=== PATIENT | female | born 2000 | race American Indian/Alaskan Native ===

== ENCOUNTER 2021-04-08 08:23 | Inpatient (IN) | payer MEDICAID ==
[2021-04-08] MEDS ORDERED: LIDOCAINE (2%) 20 MG/1 ML VIAL 20 ML MDV INFILTRATI NR (10:23)
[2021-04-08] MEDS ORDERED: TERBUTALINE 1 MG/1 ML INJ SUB-Q PRN (10:23)
[2021-04-08] MEDS ORDERED: AMPICILLIN/NS 2 GM/100 ML 2 GM/100 ML BAG IV ONE (10:23)
[2021-04-08] MEDS ORDERED: OXYTOCIN DRIP 30 UNITS/500 ML BAG IV SCH ×2 (11:00)
[2021-04-08 11:09] LABS: Hematocrit 29.5 % (30.3-42.9); Hemoglobin 9.3 gm/dl (10.1-14.3); Mean Corpuscular HGB Conc 32 % (30-34); Platelet Count 206 K/mm3 (140-440); Red Blood Count 4.45 M/mm3 (3.65-5.03); Red Cell Distribution Width 19.4 % (13.2-15.2)
[2021-04-08 11:11] LABS: Mean Corpuscular Volume 66 fl (79-97)
[2021-04-08] MEDS ORDERED: ePHEDrine SULFATE 50 MG/1 ML INJ IV PRN ×2 (11:30→21:43)
[2021-04-08] MEDS ORDERED: miSOPROStol 25 MCG TAB VG SCH (11:30)
[2021-04-08] MEDS ORDERED: BUTORPHANOL 2 MG/1 ML INJ IV PRN (11:30)
[2021-04-08] MEDS: LACTATED RINGERS 1,000 ML IV SCH ×3 (13:07→21:27)
[2021-04-08] MEDS: AMPICILLIN/NS 1 GM/50 ML 1 GM/50 ML BAG IV SCH ×2 (17:36→21:18)
[2021-04-08] MEDS: ACETAMINOPHEN 325 MG TAB PO PRN (17:47)
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
[2021-04-08] MEDS ORDERED: fentaNYL-BUPIV 2 MCG/ML-0.125% 200 MCG/100 ML BAG EPIDURAL ONE (21:41)
[2021-04-08] MEDS ORDERED: NALOXONE 2 MG/2 ML INJ IV PRN (21:43)
--- NOTE | 2021-04-08 21:43 | Anesthesia Consultation ---
Anesthesia Consult and Med Hx Date of service: 04/08/21 - Airway Anesthetic Teeth Evaluation: Good ROM Head & Neck: Adequate Mental/Hyoid Distance: Adequate Mallampati Class: Class II Intubation Access Assessment: Probably Good - Pulmonary Exam CTA: Yes - Cardiac Exam Cardiac Exam: RRR - Pre-Operative Health Status ASA Pre-Surgery Classification: ASA2 Proposed Anesthetic Plan: Epidural - Pulmonary Hx Asthma: No - Cardiovascular System Hx Hypertension: No - Central Nervous System Hx Seizures: No Hx Psychiatric Problems: Yes (ANXIETY) - Endocrine Hx Renal Disease: No Hx Hypothyroidism: No Hx Hyperthyroidism: No - Hematic Hx Anemia: No Hx Sickle Cell Disease: No - Other Systems Hx Alcohol Use: No
[2021-04-08] MEDS ORDERED: MINERAL OIL 30 ML ORAL LIQD PO PRN (22:00)
--- NOTE | 2021-04-08 22:03 | Progress Note ---
Labor Epidural - Labor Epidural Start Time: 21:52 Stop Time: 21:58 Performed by:: ESTEFANIA SHEPARD Procedure: Patient is requesting epidural for labor pain. H&P, and labs reviewed. Procedure explained, questions answered, consent obtained. Patient in sitting position with blood pressure cuff and pulse ox on and working. Timeout performed immediately before start of procedure. Sterile chlorahexadine 0.5% prep/drape. 5 mL 1% lidocaine skin wheal at L[3]-L[4]. 18-gauge Tuohy epidural needle advanced to [id number] with saline at [7] cm. Epidural dexmedetomidine [30] mcg administered. Epidural catheter advanced to [12] cm, negative aspiration for blood and csf, negative test dose 3 ml 1.5% lidocaine with epinephrine. Sterile steri-strips and tegaderm applied, followed by tape reinforcement. Patient tolerated procedure well.
[2021-04-08] MEDS: fentaNYL-BUPIV 2 MCG/ML-0.125% 200 MCG/100 ML BAG EPIDURAL SCH (22:16)
[2021-04-09] MEDS: AMPICILLIN/NS 1 GM/50 ML 1 GM/50 ML BAG IV SCH ×2 (01:18→08:05)
[2021-04-09] MEDS: fentaNYL-BUPIV 2 MCG/ML-0.125% 200 MCG/100 ML BAG EPIDURAL SCH (05:55)
[2021-04-09] MEDS: LACTATED RINGERS 1,000 ML IV SCH (09:19)
--- NOTE | 2021-04-09 10:07 | Progress Note ---
Assessment and Plan HD 2 of induction of labor. Continue with current regimen. Had discussion with patient and mother regarding plan of care. Anticipate . Subjective - Subjective Date of service: 04/09/21 Interval history: Patient is 20-year-old 2 para 0 who presents at 38 weeks for induction of labor secondary to IUGR at 7 percentile. Pt had epidural placed last night but with incomplete pain relief. Pitocin was stopped due to late decelerations and discomfort, however, patient is feeling better relief now. Patient reports: new complaints (incomplete pain relief with epidural) Objective - Vital Signs Vital Signs: Vital Signs - 12hr 04/08/21 04/08/21 04/08/21 22:03 22:04 22:05 Temperature Pulse Rate 103 H 74 87 Respiratory Rate Blood Pressure 125/72 O2 Sat by Pulse 91 100 Oximetry 04/08/21 04/08/21 04/08/21 22:07 22:10 22:15 Temperature Pulse Rate 76 81 80 Respiratory Rate Blood Pressure 131/80 122/81 O2 Sat by Pulse 100 100 Oximetry 04/08/21 04/08/21 04/08/21 22:20 22:25 22:26 Temperature Pulse Rate 95 H 82 81 Respiratory Rate Blood Pressure 121/73 O2 Sat by Pulse 100 100 Oximetry 04/08/21 04/08/21 04/08/21 22:30 22:35 22:40 Temperature Pulse Rate 84 78 75 Respiratory Rate Blood Pressure O2 Sat by Pulse 100 100 100 Oximetry 04/08/21 04/08/21 04/08/21 22:41 22:45 22:49 Temperature Pulse Rate 80 82 86 Respiratory Rate Blood Pressure 111/73 O2 Sat by Pulse 100 84 Oximetry 04/08/21 04/08/21 04/08/21 22:52 22:57 23:02 Temperature Pulse Rate 88 82 89 Respiratory Rate Blood Pressure 105/58 O2 Sat by Pulse 96 100 99 Oximetry 04/08/21 04/08/21 04/08/21 23:07 23:12 23:17 Temperature Pulse Rate 90 74 77 Respiratory Rate Blood Pressure 131/60 O2 Sat by Pulse 99 99 98 Oximetry 04/08/21 04/08/21 04/08/21 23:22 23:27 23:32 Temperature Pulse Rate 89 78 74 Respiratory Rate Blood Pressure 118/71 O2 Sat by Pulse 100 98 100 Oximetry 04/08/21 04/08/2104/08/21 23:37 23:42 23:47 Temperature Pulse Rate 78 80 77 Respiratory Rate Blood Pressure O2 Sat by Pulse 99 98 95 Oximetry 04/08/21 04/08/21 04/08/21 23:48 23:52 23:57 Temperature Pulse Rate 89 82 81 Respiratory Rate Blood Pressure O2 Sat by Pulse 94 97 99 Oximetry 04/09/21 04/09/21 04/09/21 00:00 00:02 00:07 Temperature Pulse Rate 83 83 94 H Respiratory Rate Blood Pressure 121/76 O2 Sat by Pulse 98 99 Oximetry 04/09/21 04/09/21 04/09/21 00:12 00:17 00:22 Temperature Pulse Rate 83 73 73 Respiratory Rate Blood Pressure O2 Sat by Pulse 99 99 99 Oximetry 04/09/21 04/09/21 04/09/21 00:27 00:30 00:32 Temperature Pulse Rate 96 H 77 75 Respiratory Rate Blood Pressure 129/81 O2 Sat by Pulse 98 100 Oximetry 04/09/21 04/09/21 04/09/21 00:37 00:42 00:47 Temperature Pulse Rate 70 66 70 Respiratory Rate Blood Pressure O2 Sat by Pulse 97 100 100 Oximetry 04/09/21 04/09/21 04/09/21 00:52 00:57 00:59 Temperature Pulse Rate 71 83 80 Respiratory Rate Blood Pressure 112/70 O2 Sat by Pulse 100 99 Oximetry 04/09/21 04/09/21 04/09/21 01:02 01:07 01:12 Temperature Pulse Rate 68 72 82 Respiratory Rate Blood Pressure O2 Sat by Pulse 100 100 100 Oximetry 04/09/21 04/09/21 04/09/21 01:17 01:22 01:27 Temperature Pulse Rate 84 73 82 Respiratory Rate Blood Pressure O2 Sat by Pulse 100 100 99 Oximetry 04/09/21 04/09/21 04/09/21 01:30 01:32 01:37 Temperature Pulse Rate 73 77 76 Respiratory Rate Blood Pressure 126/88 O2 Sat by Pulse 100 100 Oximetry 04/09/21 04/09/21 04/09/21 01:42 01:47 01:52 Temperature Pulse Rate 75 85 85 Respiratory Rate Blood Pressure O2 Sat by Pulse 100 100 100 Oximetry 04/09/21 04/09/21 04/09/21 01:57 01:59 02:02 Temperature Pulse Rate 77 82 77 Respiratory Rate Blood Pressure 120/72 O2 Sat by Pulse 100 100 Oximetry 04/09/21 04/09/21 04/09/21 02:07 02:12 02:17 Temperature Pulse Rate 82 86 81 Respiratory Rate Blood Pressure O2 Sat by Pulse 100 100 100 Oximetry 04/09/21 04/09/21 04/09/21 02:22 02:27 02:30 Temperature Pulse Rate 86 87 88 Respiratory Rate Blood Pressure 139/91 O2 Sat by Pulse 100 100 Oximetry 04/09/21 04/09/21 04/09/21 02:32 02:37 02:42 Temperature Pulse Rate 87 94 H 102 H Respiratory Rate Blood Pressure O2 Sat by Pulse 100 100 100 Oximetry 04/09/21 04/09/21 04/09/21 02:47 02:52 02:57 Temperature Pulse Rate 91 H 92 H 86 Respiratory Rate Blood Pressure O2 Sat by Pulse 100 100 100 Oximetry 04/09/21 04/09/21 04/09/21 03:01 03:02 03:07 Temperature Pulse Rate 78 79 88 Respiratory Rate Blood Pressure 146/91 O2 Sat by Pulse 100 100 Oximetry 04/09/21 04/09/21 04/09/21 03:12 03:17 03:22 Temperature Pulse Rate 85 82 82 Respiratory Rate Blood Pressure O2 Sat by Pulse 100 100 100 Oximetry 04/09/21 04/09/21 04/09/21 03:27 03:29 03:32 Temperature Pulse Rate 79 83 80 Respiratory Rate Blood Pressure 123/88 O2 Sat by Pulse 100 100 Oximetry 04/09/21 04/09/21 04/09/21 03:37 03:42 03:47 Temperature Pulse Rate 77 78 98 H Respiratory Rate Blood Pressure O2 Sat by Pulse 100 100 100 Oximetry 04/09/21 04/09/21 04/09/21 03:52 03:57 04:00 Temperature Pulse Rate 82 91 H 91 H Respiratory Rate Blood Pressure 127/94 O2 Sat by Pulse 100 98 Oximetry 04/09/21 04/09/21 04/09/21 04:01 04:02 04:07 Temperature 98.4 F Pulse Rate 84 85 Respiratory 18 Rate Blood Pressure O2 Sat by Pulse 100 100 Oximetry 04/09/21 04/09/21 04/09/21 04:12 04:17 04:22 Temperature Pulse Rate 93 H 81 86 Respiratory Rate Blood Pressure O2 Sat by Pulse 100 100 98 Oximetry 04/09/21 04/09/21 04/09/21 04:27 04:32 04:37 Temperature Pulse Rate 103 H 85 100 H Respiratory Rate Blood Pressure O2 Sat by Pulse 99 99 100 Oximetry 04/09/21 04/09/21 04/09/21 04:42 04:47 04:52 Temperature Pulse Rate 82 98 H 86 Respiratory Rate Blood Pressure O2 Sat by Pulse 99 98 100 Oximetry 04/09/21 04/09/21 04/09/21 04:57 05:02 05:07 Temperature Pulse Rate 81 92 H 97 H Respiratory Rate Blood Pressure 144/91 O2 Sat by Pulse 99 100 100 Oximetry 04/09/21 04/09/21 04/09/21 05:12 05:17 05:22 Temperature Pulse Rate 99 H 103 H 91 H Respiratory Rate Blood Pressure O2 Sat by Pulse 100 100 100 Oximetry 04/09/21 04/09/21 04/09/21 05:27 05:32 05:36 Temperature Pulse Rate 88 98 H 79 Respiratory Rate Blood Pressure O2 Sat by Pulse 100 100 93 Oximetry 04/09/21 04/09/21 04/09/21 05:37 05:42 05:47 Temperature Pulse Rate 94 H 99 H 83 Respiratory Rate Blood Pressure O2 Sat by Pulse 100 100 100 Oximetry 04/09/21 04/09/21 04/09/21 05:52 05:57 06:02 Temperature Pulse Rate 85 82 83 Respiratory Rate Blood Pressure O2 Sat by Pulse 100 100 100 Oximetry 04/09/21 04/09/21 04/09/21 06:07 06:12 06:17 Temperature Pulse Rate 92 H 86 97 H Respiratory Rate Blood Pressure O2 Sat by Pulse 100 100 100 Oximetry 04/09/21 04/09/21 04/09/21 06:22 06:27 06:32 Temperature Pulse Rate 88 89 94 H Respiratory Rate Blood Pressure O2 Sat by Pulse 99 99 99 Oximetry 04/09/21 04/09/21 04/09/21 06:37 06:40 06:42 Temperature Pulse Rate 120 H 100 H 104 H Respiratory Rate Blood Pressure 125/78 O2 Sat by Pulse 100 97 Oximetry 04/09/21 04/09/21 04/09/21 06:47 06:52 06:57 Temperature Pulse Rate 86 85 89 Respiratory Rate Blood Pressure O2 Sat by Pulse 99 100 99 Oximetry 04/09/21 04/09/21 04/09/21 07:02 07:07 07:12 Temperature Pulse Rate 91 H 83 104 H Respiratory Rate Blood Pressure O2 Sat by Pulse 99 100 99 Oximetry 04/09/21 04/09/21 04/09/21 07:17 07:22 07:27 Temperature Pulse Rate 90 90 93 H Respiratory Rate Blood Pressure O2 Sat by Pulse 100 100 100 Oximetry 04/09/21 04/09/21 04/09/21 07:32 07:37 07:39 Temperature Pulse Rate 102 H 106 H 81 Respiratory Rate Blood Pressure 142/77 O2 Sat by Pulse 100 100 Oximetry 04/09/21 04/09/21 04/09/21 07:42 07:47 07:52 Temperature Pulse Rate 85 76 88 Respiratory Rate Blood Pressure O2 Sat by Pulse 100 100 100 Oximetry 04/09/21 04/09/21 04/09/21 07:57 08:02 08:07 Temperature Pulse Rate 78 84 81 Respiratory Rate Blood Pressure O2 Sat by Pulse 100 100 100 Oximetry 04/09/21 04/09/21 04/09/21 08:11 08:12 08:17 Temperature 98.4 F Pulse Rate 84 79 Respiratory Rate Blood Pressure O2 Sat by Pulse 100 100 Oximetry 04/09/21 04/09/21 04/09/21 08:20 08:22 08:27 Temperature Pulse Rate 95 H 93 H 86 Respiratory Rate Blood Pressure O2 Sat by Pulse 0 L 100 100 Oximetry 04/09/21 04/09/21 04/09/21 08:32 08:33 08:37 Temperature Pulse Rate 106 H 105 H 86 Respiratory Rate Blood Pressure O2 Sat by Pulse 94 93 100 Oximetry 04/09/21 04/09/21 04/09/21 08:39 08:42 08:47 Temperature Pulse Rate 81 79 80 Respiratory Rate Blood Pressure 141/75 O2 Sat by Pulse 100 100 Oximetry 04/09/21 04/09/21 04/09/21 08:52 08:55 08:57 Temperature Pulse Rate 78 96 H 82 Respiratory Rate Blood Pressure O2 Sat by Pulse 100 85 100 Oximetry 04/09/21 04/09/21 04/09/21 09:02 09:07 09:12 Temperature Pulse Rate 102 H 86 91 H Respiratory Rate Blood Pressure O2 Sat by Pulse 99 100 100 Oximetry 04/09/21 04/09/21 04/09/21 09:17 09:22 09:27 Temperature Pulse Rate 87 86 80 Respiratory Rate Blood Pressure O2 Sat by Pulse 100 100 100 Oximetry 04/09/21 04/09/21 04/09/21 09:32 09:37 09:38 Temperature Pulse Rate 80 100 H 99 H Respiratory Rate Blood Pressure 125/86 O2 Sat by Pulse 100 100 Oximetry 04/09/21 04/09/21 04/09/21 09:42 09:47 09:51 Temperature Pulse Rate 93 H 107 H 110 H Respiratory Rate Blood Pressure O2 Sat by Pulse 100 99 86 Oximetry 04/09/21 04/09/21 09:52 09:57 Temperature Pulse Rate 114 H 98 H Respiratory Rate Blood Pressure O2 Sat by Pulse 88 100 Oximetry - Exam Breasts: deferred Cardiovascular: Regular rate, Normal S1, Normal S2 Lungs: Clear to auscultation, Normal air movement Abdomen: Present: normal appearance, soft, normal bowel sounds Vulva: both: normal Uterus: Present: normal, firm FHR: auscultation normal Cervical Dilatation: 6 Cervical Effacement Percentage: 90 station: -2 Uterine Contraction Pattern: Regular Uterine Contraction Intensity: Moderate - Labs Labs: Abnormal Labs 04/08/21 10:05 Hgb 9.3 L Hct 29.5 L MCV 66 L MCH 21 L RDW 19.4 H Laboratory Results - last 24 hr 04/08/21 04/08/21 04/08/21 10:05 10:05 10:05 WBC 9.7 RBC 4.45 Hgb 9.3 L Hct 29.5 L MCV 66 L MCH 21 L MCHC 32 RDW 19.4 H Plt Count 206 Syphilis IgG Antibody Nonreactive Coronavirus (PCR) Blood Type A NEGATIVE Antibody Screen Negative 04/08/21 Unknown WBC RBC Hgb Hct MCV MCH MCHC RDW Plt Count Syphilis IgG Antibody Coronavirus (PCR) Negative Blood Type Antibody Screen
[2021-04-09] MEDS ORDERED: LIDOCAINE (2%) 20 MG/1 ML VIAL 20 ML MDV INFILTRATI ONE (10:09)
--- NOTE | 2021-04-09 13:10 | Procedure Note ---
OB Delivery Note - Delivery Date of Delivery: 04/09/21 Surgeon: GEOVANNY THURMAN Estimated blood loss: 200cc - Vaginal Delivery presentation: vertex Delivery position: OA Intrapartum events: mult. late decelerations Delivery induction: misoprostol Delivery augmentation: rupture of membranes, pitocin Delivery monitor: external FHT, external uterine Route of delivery: Delivery placenta: spontaneous Delivery cord: nuchal cord, 3 umbilical vessels Episiotomy: none Delivery laceration: 1st degree Delivery repair: vicryl Anesthesia: epidural Delivery comments: Viable female delivered over intact perineum without episiotomy. Nuchal cord incomplete on perineum infant delivered through. Mouth and nose suctioned on the field. Placenta delivered spontaneously and intact with three-vessel cord. Apgars 8 and 9. Weight 5 pounds 11 ounces. Small perineal laceration repaired with 3-0 Vicryl. A second upper sidewall laceration was hemostatic and not repaired. There was excellent hemostasis at end of this part of the procedure. Patient tolerated procedure well. - Infant A at 1 minute: 8 at 5 minutes: 9 Gender: Female (5 pounds 11 ounces)
[2021-04-09] MEDS: ACETAMINOPHEN 325 MG TAB PO PRN (15:30)
[2021-04-09] MEDS ORDERED: IBUPROFEN 600 MG TAB PO SCH (15:39)
[2021-04-09] MEDS ORDERED: WITCH HAZEL/ GLYCERIN PAD TP PRN (16:00)
[2021-04-09] MEDS ORDERED: LANOLIN/ZINC/DIMETHICONE (LANSINOH) 7 GM TP PRN (16:00)
[2021-04-09] MEDS ORDERED: ONDANSETRON 4 MG/2 ML INJ IV PRN (16:00)
[2021-04-09] MEDS ORDERED: PROMETHAZINE 25 MG TAB PO PRN (16:30)
[2021-04-09] MEDS ORDERED: PROMETHAZINE 25 MG RECT SUPP PR PRN (16:30)
[2021-04-09] MEDS ORDERED: diphenhydrAMINE 25 MG CAP PO PRN (16:30)
[2021-04-09] MEDS ORDERED: ACETAMINOPHEN 325 MG TAB PO PRN (19:28)
[2021-04-09] MEDS ORDERED: MAGNESIUM HYDROXIDE (MOM) ORAL LIQD UDC PO PRN (22:00)
[2021-04-09] MEDS: DOCUSATE SODIUM 100 MG CAP PO SCH (22:40)
[2021-04-09] MEDS: FERROUS SULFATE 325 MG TAB PO SCH (22:40)
[2021-04-10] MEDS: HYDROcodone/ACETAMINOPHEN 5-325 MG TAB PO PRN ×2 (09:02→15:00)
[2021-04-10] MEDS ORDERED: PRENATAL VIT27-FE FUMARATE-FOLIC ACID VIT TAB PO SCH (10:00)
[2021-04-10] MEDS: FERROUS SULFATE 325 MG TAB PO SCH (10:44)
[2021-04-10] MEDS: DOCUSATE SODIUM 100 MG CAP PO SCH (10:44)
--- NOTE | 2021-04-10 12:53 | Post Anesthesia Evaluation ---
- Post Anesthesia Evaluation Patient Participated: Yes Airway Patent: Yes Stable Respiratory Function: Yes Nausea/Vomiting: No Temp > 96.8F: Yes Pain Manageable: Yes Adequeate Hydration: Yes Anesthesia Complications: No Block Receding Appropriately: Yes Patient on Ventilator: No
[2021-04-10 17:07] VITALS: BP 110/70
[2021-04-10 17:18] LABS: Hemoglobin 5.9 gm/dl (10.1-14.3)
--- NOTE | 2021-04-10 18:55 | Progress Note ---
Assessment and Plan PPD 1 s/p . Pt has very low hgb but is asymptomatic. She has no complaints. Pt is well. Infant is discharged and patient is prepared for discharge on this evening. Plan for discharge this evening. Subjective - Subjective Date of service: 04/10/21 Interval history: Patient is 20-year-old 2 para 0 who presents at 38 weeks for induction of labor secondary to IUGR at 7 percentile. Pt had epidural placed last night but with incomplete pain relief. Pitocin was stopped due to late decelerations and discomfort, however, patient is feeling better relief now. Patient reports: appetite normal, voiding normally, pain well controlled, ambulating normally : doing well Objective - Vital Signs Latest vital signs: Vital Signs Temp Pulse Resp BP BP 04/10/21 17:06 98.5 F 88 20 110/70 04/10/21 07:45 98.7 F 91 H 20 112/72 04/10/21 00:30 98.6 F 74 18 104/68 04/09/21 20:42 98.0 F 18 123/85 Intake and Output 04/10/21 04/10/21 04/10/21 06:59 14:59 22:59 Intake Total 500 440 240 Balance 500 440 240 Intake: Oral 200 440 240 Intake, Free Water 300 Other: Total, Intake Amount 200 120 240 # Voids Void 1 1 1 - Exam Breasts: Present: deferred Cardiovascular: Present: Regular rate, Normal S1, Normal S2 Lungs: Present: Clear to auscultation, Normal air movement Abdomen: Present: normal appearance, soft Uterus: Present: normal, firm Extremities: Present: normal - Labs Labs: Abnormal lab results 04/10/21 Range/Units 16:17 Hgb 5.9 L* D (10.1-14.3) gm/dl Hct 19.0 L* D (30.3-42.9) %
--- NOTE | 2021-04-10 18:56 | Discharge Summary ---
Providers - Providers Date of Admission: 04/08/21 10:23 Date of discharge: 04/10/21 Attending physician: GEOVANNY THURMAN Primary care physician: GEOVANNY THURMAN Hospitalization Reason for admission: induction of labor Delivery: Laceration: 1st degree Other procedures: tubal ligation complications: none Discharge diagnosis: IUP at term delivered baby: female Hospital course: Unremarkable Condition at discharge: Good Disposition: DC-01 TO HOME OR SELFCARE Plan - Discharge Medications Prescriptions: Ferrous Sulfate [Feosol 325 MG tab] 325 mg PO BID #60 tablet Ibuprofen [Motrin] 800 mg PO Q8HR PRN #40 tablet PRN Reason: Pain, Mild (1-3) HYDROcodone/APAP 5-325 [[place] 5/325] 1 each PO Q6HR PRN #15 tablet PRN Reason: Pain - Provider Discharge Summary Activity: routine, no sex for 6 weeks, no heavy lifting 4 weeks Diet: routine Instructions: routine Additional instructions: [] Smoking cessation referral if applicable(refer to patient education folder for contact #) [] Refer to [facility] Booklet Call your doctor immediately for: * Fever > 100.5 * Heavy vaginal bleeding ( >1 pad per hour) * Severe persistent headache * Shortness of breath * Reddened, hot, painful area to leg or breast * Drainage or odor from incision. * Keep incision clean and dry at all times and follow doctor's instructions regarding bathing/showering - Follow up plan Follow up: GEOVANNY THURMAN MD [Primary Care Provider] - 14 Days Forms: [facility] Discharge Summary
== END 2021-04-10 20:00 | disposition home or self-care (01) | DRG 775 ==
LOC: TRG 08:23 → LD 08:26 → TRG 10:23 → LD 10:23 → OB 04-09 15:00
PROVIDERS: ADMIT Obstetrics & Gynecology; ATTEND Obstetrics & Gynecology
PROC: 10E0XZZ Delivery of Products of Conception, External Approach (ICD-10-PCS; principal; 2021-04-09)
PROC: 0HQ9XZZ Repair Perineum Skin, External Approach (ICD-10-PCS; 2021-04-09)
PROC: 3E0P7VZ Introduction of Hormone into Female Reproductive, Via Natural or Artificial Opening (ICD-10-PCS; 2021-04-09)
PROC: 3E0R3BZ Introduction of Anesthetic Agent into Spinal Canal, Percutaneous Approach (ICD-10-PCS; 2021-04-09)
PROC: 00HU33Z Insertion of Infusion Device into Spinal Canal, Percutaneous Approach (ICD-10-PCS; 2021-04-09)
DX: O76 Abnormality in fetal heart rate and rhythm complicating labor and delivery (principal); O36.5930 Maternal care for other known or suspected poor fetal growth, third trimester, not applicable or unspecified; Z20.822 Contact with and (suspected) exposure to COVID-19; O69.81X0 Labor and delivery complicated by cord around neck, without compression, not applicable or unspecified; O99.344 Other mental disorders complicating childbirth; F41.9 Anxiety disorder, unspecified; O99.824 Streptococcus B carrier state complicating childbirth; O70.0 First degree perineal laceration during delivery; Z3A.38 38 weeks gestation of pregnancy; Z37.0 Single live birth
CPT/HCPCS: 36415; 85014; 85018; 85027; 86592; 86850; 86900; 86901; 96360; 96368; G0378; J0290; J0595; J2590; J7120; U0003

== ENCOUNTER 2022-03-18 14:10 | Outpatient (CLI) | payer MEDICAID ==
[2022-03-18] MEDS ORDERED: LACTATED RINGERS 1,000 ML IV ONE (14:40)
[2022-03-18 15:03] VITALS: BP 121/79
[2022-03-18 15:59] LABS: Bacteria,Urine 3+ /HPF (Negative); Bilirubin,Urine NEG (Negative); Blood,Urine NEG (Negative); Color,Urine Yellow (Yellow); Hyaline Casts,Urine 1 /LPF; Mucus,Urine FEW /HPF; Protein,Urine <15 mg/dL mg/dL (Negative)
--- NOTE | 2022-03-18 19:30 | Ultrasound Report ---
US OB limited INDICATION: c/o leaking fluid. TECHNIQUE: Limited OB ultrasound COMPARISON: None available. FINDINGS: Amniotic fluid index is normal, measuring 12.7 cm. heart rate measures 1 54 bpm. position is cephalic. Signer Name: Abraham Parker MD Signed: 03/18/2022 7:25 PM Workstation Name: [id number]
== END 2022-03-18 18:10 | disposition home or self-care (01) ==
LOC: APU 14:10 → TRG 14:10
PROVIDERS: ATTEND Obstetrics & Gynecology
DX: O67.9 Intrapartum hemorrhage, unspecified (principal); Z3A.35 35 weeks gestation of pregnancy
CPT/HCPCS: 36415; 59025; 76815; 81001; 84112

== ENCOUNTER 2022-03-28 09:47 | Outpatient (CLI) | payer MEDICAID ==
[2022-03-28 12:23] VITALS: BP 87/54
== END 2022-03-28 12:50 | disposition home or self-care (01) ==
LOC: TRG 09:47 → LD 09:48 → TRG 12:50
PROVIDERS: ATTEND Obstetrics & Gynecology
DX: Z34.93 Encounter for supervision of normal pregnancy, unspecified, third trimester (principal); Z3A.37 37 weeks gestation of pregnancy
CPT/HCPCS: 36415; 84112